=== PATIENT | female | born 1955 | race Caucasian/White ===

== ENCOUNTER 2023-11-17 10:45 | Outpatient (CLI) | payer MEDICARE, OTHER ==
--- NOTE | 2023-11-17 12:18 | XRAY Report ---
PROCEDURE: Finger(s) LT INDICATIONS: CONTUSION OF LEFT THUMB TECHNIQUE: AP hand, 2 views of the first finger(s) acquired. COMPARISON: None. FINDINGS: Bones: Small ossicles at the base of the first distal phalanx. Suspected donor size. Minimal displac ement. No dislocations. No suspicious bony lesions. Mild degenerative changes. Soft tissues: No suspicious soft tissue calcifications or masses. IMPRESSION: Suspect prior corner fracture or fractures of the first digit distal phalanx. Acuity is uncertain. Recommend correlation for point tenderness. Follow-up radiographs in 10-14 days may be helpful for fu rther evaluation. Reviewed by: Nixon Blackman MD on 11/17/2023 12:16 PM PDT Approved by: Nixon Blackman MD on 11/17/2023 12:16 PM PDT Station ID: [id number]
== END 2023-11-17 11:00 | disposition home or self-care (01) ==
LOC: DI.N 10:45
PROVIDERS: ATTEND Physician Assistant Medical
DX: S60.012A Contusion of left thumb without damage to nail, initial encounter (principal)